=== PATIENT | male | born 1930 | race Caucasian/White ===

== ENCOUNTER → 2016-10-27 | Outpatient (CLI) | payer MEDICARE ==
--- NOTE | 2016-10-27 12:37 | FL ---
EXAMINATION TYPE: FL barium swallow w video DATE OF EXAM: 10/27/2016 MODIFIED SWALLOW / DEGLUTITION STUDY CLINICAL HISTORY: Dysphagia. COPD. History of colon cancer. TECHNIQUE: Deglutition study is performed utilizing thin liquid barium, honey and nectar thick liqui d barium, barium thick applesauce, and barium coated cracker. A total of 3.21 minutes of fluoroscopic time was utilized during procedure. COMPARISON: None. FINDINGS: The oral and pharyngeal phases show satisfactory initiation and propagation with all modali ties tested. Satisfactory mastication is seen with solid modalities tested. There is deep penetratio n and aspiration with thin liquid barium and honey thick liquid barium. Cough reflex was not initiate d. More viscous modalities show no evidence of penetration or aspiration. No significant pharyngeal r esidue was appreciated. IMPRESSION: Aspiration with less viscous modalities which does not initiate cough reflex. Please refer to speech therapist notes for further details if necessary.
== END | disposition home or self-care (01) ==
LOC: RADFLMAIN 10:55
PROVIDERS: ATTEND Family Medicine
DX: R13.10 Dysphagia, unspecified (principal)
CPT/HCPCS: 74230